=== PATIENT | female | born 1970 ===

== ENCOUNTER 2016-08-14 15:15 | Inpatient (IN) | payer BC ==
[~2016-08-14] VITALS: Ht 167.6 cm; Wt 76.6 kg
[2016-08-14 17:58] VITALS: BP 114/68; RESP 18
[2016-08-14 18:02] VITALS: Ht 167.6 cm; Wt 76.6 kg
[2016-08-14] MEDS ORDERED: ONDANSETRON 4 MG INJ IV PRN (19:00)
[2016-08-14] MEDS ORDERED: ACETAMINOPHEN 325 MG TAB PO PRN (19:00)
[2016-08-14] MEDS ORDERED: DOCUSATE SODIUM 100 MG CAP PO PRN (19:00)
[2016-08-14] MEDS ORDERED: NACL 0.9% 3 ML SYG IV SCH (19:00)
[2016-08-14] MEDS ORDERED: GLUCOSE GEL 15 GRAM TUBE BUCCAL PRN (19:30)
[2016-08-14] MEDS ORDERED: DEXTROSE 50% 50 ML SYRINGE IV PRN ×2 (19:30)
[2016-08-14] MEDS ORDERED: GLUCOSE GEL 15 GRAM TUBE PO PRN ×2 (19:30)
[2016-08-14] MEDS ORDERED: GLUCAGON 1 MG INJ IM PRN (19:30)
[2016-08-14 19:46] VITALS: BP 107/62; RESP 20
[2016-08-14] MEDS ORDERED: INSULIN GLARGINE [LANtus] 3 ML PEN SC SCH (20:00)
[2016-08-14] MEDS: SOD CHLORIDE 0.9% 1,000 ML IV SCH (20:29)
[2016-08-14 20:42] LABS: CHOL/HDL RATIO 9.8 RATIO; MAGNESIUM 1.8 mg/dl (1.7-2.5)
[2016-08-14] MEDS: ATORVASTATIN 80 MG TAB PO SCH (20:44)
[2016-08-14] MEDS: INSULIN ASPART [NOVOLOG] 3 ML PEN SC SCH (20:49)
[2016-08-14] MEDS: CEFAZOLIN 1 GM/50 ML (PMX) 50 ML IVPB SCH (22:14)
[2016-08-14] MEDS: HYDROCODONE/APAP (5/325) TAB PO PRN (22:19)
--- NOTE | 2016-08-14 22:53 | HP ---
DATE OF ADMISSION: 08/14/2016 TIME OF EVALUATION: 1844. REASON FOR ADMISSION: Left foot infection. Failed outpatient treatment. CONSULTANTS: Judith Gong, [facility], Podiatry. HISTORY OF PRESENT ILLNESS: This is a 46-year-old female with a past medical history of type 2 diabetes mellitus and dyslipidemia who had stepped on a toothpick on 08/09/2016 with a resultant injury to the left foot plantar surface proximal to the left big toe. The patient visited a local ER and the patient was discharged on p.o. Bactrim with minimal improvement. The patient initially visited [facility] on the day of injury. Today, the patient went to [facility] since she lives there locally because of the same problems. The patient was transferred to [facility] for further management because of insurance reasons. The patient denied any fevers or chills. The patient denied any obvious secretions or prolonged bleeding from the injury site. The patient verbalized that she has been resting with her foot elevated. However, this has not improved her symptoms. The patient tried [id number] pain medications with no improvement. The patient has been taking her Bactrim as prescribed until today. In the emergency room at [facility] the patient had a left foot x-ray done that did not show any obvious foreign body. The patient was given a tetanus injection at [facility]. The patient was transferred to [facility] because of insurance reasons. PAST MEDICAL HISTORY: Dyslipidemia, type 2 diabetes mellitus. PAST SURGICAL HISTORY: Hernia repair as a child. HOME MEDICATIONS: 1. Lantus insulin 15 units subcutaneously at bedtime. 2. Lipitor 80 mg p.o. at bedtime. 3. Metformin 1000 mg p.o. b.i.d. 4. Vitamin D3 400 units p.o. daily. 5. Enteric-coated aspirin 81 mg p.o. daily. ALLERGIES: NO KNOWN DRUG ALLERGIES. SOCIAL HISTORY: The patient lives at home. 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 Denies any use of tobacco, alcohol or illicit drugs. REVIEW OF SYSTEMS: A 12-point review of systems were made and the review of systems was negative other than what is mentioned in the history of present illness. PHYSICAL EXAMINATION: VITAL SIGNS: Temperature 98.1, pulse rate 81, respiratory rate 18, blood pressure 114/68, oxygen saturation 97% on room air. GENERAL: This is well-built, well-nourished female lying in bed in no apparent distress. HEENT: Head normocephalic and atraumatic. Eyes: Anicteric sclerae. Conjunctivae clear. EARS, NOSE, THROAT: Nasal septum is midline. Oral mucosa is moist. NECK: Supple. No JVD noticed. RESPIRATORY: Bilaterally clear to auscultation. No adventitious breath sounds. No use of accessory muscles of respiration. CARDIAC: Regular rhythm and rate. No murmurs. GASTROINTESTINAL: Abdomen soft, nontender and nondistended. Bowel sounds positive in all 4 quadrants. GENITOURINARY: Deferred. EXTREMITIES: No cyanosis, no clubbing. Peripheral pulses palpable. Left foot : Edema on the plantar aspect, proximal to the left first toe with tenderness to touch. NEUROLOGIC: The patient is awake, alert and oriented. Cranial nerves are grossly intact. LABORATORY AND DIAGNOSTIC DATA: From [facility]: WBC 5.6, hemoglobin 11.1, hematocrit 33.6, platelet count 362. Sodium 130, potassium 4.0, chloride 92, carbon dioxide 22, BUN 7, creatinine 0.7, GFR greater than 60. Glucose 355 , calcium 9.2, total bilirubin 0.2, AST 12, ALT 9, alkaline phosphatase 77, total protein 8.4, albumin 4.2. Left foot x-ray. No obvious foreign body. IMPRESSION: This is a 46-year-old female who had an injury to the left foot secondary to stepping on a toothpick on 08/09/2016 who had failed outpatient treatment and will be admitted here for further treatment and evaluation. ASSESSMENT AND PLAN: 1. Left foot diabetic foot infection secondary to injury, to rule out any foreign body. The patient will be started on IV antibiotics. A left foot MRI will be obtained to evaluate for any underlying osteomyelitis or any foreign body. A podiatry consult will be obtained. The patient will be provided with adequate pain control. 2. Type 2 diabetes mellitus, uncontrolled. The patient will be started on sliding scale insulin along with Lantus insulin. Hemoglobin A1c will be obtained to evaluate the blood glucose control over the past few weeks. 3. Dyslipidemia. The patient will be resumed on statins. A fasting lipid panel will be obtained. 4. Hyponatremia. Etiology unclear. The patient will be started on IV hydration with normal saline. Plan. The patient will be admitted to inpatient medical/surgical floor. The patient will be started on a carbohydrate controlled low cholesterol diet. The patient will be started on DVT prophylaxis and gastrointestinal prophylaxis. The patient will remain a FULL CODE. The rest of the patient's management will be based on the clinical course, the results of the diagnostics and inputs from consultants. Based on the patient's clinical presentation, she most probably requires at least 2 midnights' stay for further management and evaluation of her clinical presentation. The case and management of this patient was fully discussed with Dr. Reilly. Approximately 50 minutes was spent on the history and physical of this patient. LATANYA REILLY MD AM/NTS Conf#: [id number] DID#: [id number] CC: JUDITH GONG DPM; DOMINGO REILLY MD;*EndCC* MTDD
[2016-08-15] MEDS: ACCUCHECK XX SCH (02:46)
[2016-08-15] MEDS: CEFAZOLIN 1 GM/50 ML (PMX) 50 ML IVPB SCH ×2 (06:03→13:22)
[2016-08-15 06:16] LABS: BASOPHIL # 0.1 10^3/ul (0.0-0.1); BASOPHILS % 1.3 % (0.0-2.0); EOSINOPHILS # 0.2 10^3/ul (0.0-0.5); EOSINOPHILS % 3.3 % (0.0-7.0); HEMATOCRIT 30.7 % (37.0-47.0); HEMOGLOBIN 10.1 g/dl (12.0-16.0); LYMPHOCYTES # 1.6 10^3/ul (0.8-2.9); LYMPHOCYTES % 30.7 % (15.0-51.0); MEAN CORPUSCULAR HEMOGLOBIN 25.1 pg (29.0-33.0); MEAN CORPUSCULAR VOLUME 76.1 fl (82.0-101.0); MEAN PLATELET VOLUME 9.5 fl (7.4-10.4); MONOCYTE # 0.5 10^3/ul (0.3-0.9); NEUTROPHIL # 2.8 10^3/ul (1.6-7.5); NEUTROPHILS % 54.7 % (39.0-77.0); PLATELET COUNT 294 10^3/UL (140-440); RED BLOOD COUNT 4.03 10^6/ul (4.20-5.40); UNCORRECTED WBC 5.1 10^3/ul (4.8-10.8); WHITE BLOOD COUNT 5.1 10^3/ul (4.8-10.8)
[2016-08-15 06:34] LABS: CONDITION 1; LH ANALYZER COMMENTS 1
[2016-08-15 06:39] LABS: MAGNESIUM 1.7 mg/dl (1.7-2.5)
[2016-08-15 06:54] LABS: POTASSIUM 4.4 mmol/L (3.5-5.1)
[2016-08-15 06:56] LABS: CREATININE 0.68 mg/dl (0.44-1.00)
[2016-08-15 06:57] LABS: CALCIUM 8.8 mg/dl (8.4-10.2)
[2016-08-15 07:22] VITALS: BP 134/80; RESP 18
[2016-08-15 08:18] VITALS: BP 100/57; RESP 18
[2016-08-15] MEDS: SOD CHLORIDE 0.9% 1,000 ML IV SCH ×2 (08:20→10:54)
[2016-08-15] MEDS: ASPIRIN (EC) 81 MG TAB PO SCH (08:22)
[2016-08-15] MEDS: ENOXAPARIN 40 MG/0.4 ML SYG SC SCH (08:26)
[2016-08-15] MEDS: INSULIN ASPART [NOVOLOG] 3 ML PEN SC SCH ×6 (08:27→20:33)
--- NOTE | 2016-08-15 10:25 | PN ---
Date/Time of Note Date/Time of Note DATE: 08/15/16 TIME: 10:25 Assessment/Plan VTE Prophylaxis VTE Prophylaxis Intervention: LMWH Lines/Catheters [facility] Peripheral IV Urinary Cath still in place: No Assessment/Plan Chief Complaint/Hosp Course 1. Left foot cellulitis secondary to injury, to rule out any foreign body. Continue antibiotics. Pending left foot MRI. A podiatry consult pending. Continue adequate pain control. 2. Type 2 diabetes mellitus, uncontrolled. Continue sliding scale insulin along with basal insulin and pre-meal insulin. Will adjust insulin to obtain optimal blood sugar control. Hemoglobin A1c out of range and was sent out for confirmation. 3. Dyslipidemia. Continue statins. We will reinforce a low-cholesterol diet. 4. Hyponatremia. Improving. Continue normal saline IV. 5. Microcytic, hypochromic anemia. Will obtain an iron panel. Will monitor the H&H closely. 6. Fluids, electrolytes, and nutrition. Carbohydrate controlled, low- cholesterol diet. 7. DVT prophylaxis. Subcutaneous Lovenox. 8. Gastrointestinal prophylaxis. Histamine 2 receptor blockers. 9. Plan. Continue pain control. Continue antibiotics. Await podiatry evaluation. Await foot MRI. Call ID for antibiotic management. Case discussed with . Problems: Subjective 24 Hr Interval Summary Free Text/Dictation Blood sugars running high. Left foot pain well controlled. Exam/Review of Systems Vital Signs Vitals Vital Signs Date Time Temp Pulse Resp B/P Pulse Ox O2 Delivery O2 Flow Rate FiO2 08/15/16 08:18 98.0 79 18 100/57 99 Intake and Output 08/14/16 08/14/16 08/15/16 15:00 23:00 07:00 Intake Total 1440 ml Output Total 600 ml Balance 840 ml Exam GENERAL: This is well-built, well-nourished female lying in bed in no apparent distress. HEENT: Head normocephalic and atraumatic. Eyes: Anicteric sclerae. Conjunctivae clear. EARS, NOSE, THROAT: Nasal septum is midline. Oral mucosa is moist. NECK: Supple. No JVD noticed. RESPIRATORY: Bilaterally clear to auscultation. No adventitious breath sounds. No use of accessory muscles of respiration. CARDIAC: Regular rhythm and rate. No murmurs. GASTROINTESTINAL: Abdomen soft, nontender and nondistended. Bowel sounds positive in all 4 quadrants. GENITOURINARY: Deferred. EXTREMITIES: No cyanosis, no clubbing. Peripheral pulses palpable. Left foot : Edema on the plantar aspect proximal to the left first toe with tenderness to touch. NEUROLOGIC: The patient is awake, alert and oriented. Cranial nerves are grossly intact. Results Result Diagram: 08/15/16 0520 08/15/16 0500 Results 24 hrs Laboratory Tests Test 08/14/16 19:40 08/14/16 20:42 08/14/16 23:15 08/15/16 02:12 Cholesterol Level 306 H Cholesterol/HDL Ratio 9.8 HDL Cholesterol 31 L Hemoglobin A1c LDL Cholesterol, Calculated 241 Magnesium Level 1.8 Triglycerides Level 168 H Bedside Glucose 284 H 265 H Urine Test NEGATIVE Test 08/15/16 05:00 08/15/16 05:20 08/15/16 07:56 Anion Gap 14 Blood Urea Nitrogen 9 Calcium Level 8.8 Carbon Dioxide Level 22 Chloride Level 102 Creatinine 0.68 Glucose Level 262 H Magnesium Level 1.7 Phosphorus Level 4.0 Potassium Level 4.4 Sodium Level 134 L Basophils # 0.1 Basophils % 1.3 Blood Morphology Comment Eosinophils # 0.2 Eosinophils % 3.3 Hematocrit 30.7 L Hemoglobin 10.1 L Lymphocytes # 1.6 Lymphocytes % 30.7 Mean Corpuscular Hemoglobin 25.1 L Mean Corpuscular Hemoglobin Concent 33.0 Mean Corpuscular Volume 76.1 L Mean Platelet Volume 9.5 Monocytes # 0.5 Monocytes % 10.0 Neutrophils # 2.8 Neutrophils % 54.7 Nucleated Red Blood Cells # 0.0 Nucleated Red Blood Cells % 0.0 Platelet Count 294 Red Blood Count 4.03 L Red Cell Distribution Width 17.0 H White Blood Count 5.1 Bedside Glucose 232 H Medications Medications Current Medications Ondansetron HCl (Zofran Inj) 4 mg Q6H PRN IV NAUSEA AND/OR VOMITING; Start 05/20 at 19:00 Acetaminophen (Tylenol Tab) 650 mg Q6H PRN PO PAIN LEVEL 1-3 OR FEVER; Start at 19:00 Acetaminophen/ Hydrocodone Bitart (Rubicon (5/325)) 1 tab Q6H PRN PO MODERATE PAIN LEVEL 4-6 Last administered on 08/14/16t 22:19; Admin Dose 1 TAB; Start 05/20 at 19:00 Morphine Sulfate (morphine) 2 mg Q4H PRN IV SEVERE PAIN LEVEL 7-10; Start 08/14 at 19:00 Docusate Sodium (Colace) 100 mg Q12H PRN PO CONSTIPATION; Start 08/14/16 at 19: 00 Enoxaparin Sodium 40 mg 40 mg DAILY SC Last administered on 08/15/16 08:26; Admin Dose 40 MG; Start 08/15/16 at 09:00 Cefazolin Sodium (Ancef 1 Gm/50 ml (Pmx)) 50 ml @ 100 mls/hr Q8 IVPB Last administered on 08/15/16 06:03; Admin Dose 100 MLS/HR; Start 08/14/16 at 22:00 Diagnostic Test (Pha) (Accucheck) 1 ea 02 XX Last administered on 08/15/16 02: 46; Admin Dose 1 EA; Start 08/15/16 at 02:00 Atorvastatin Calcium (Lipitor) 80 mg HS PO Last administered on 08/14/16 20:44 ; Admin Dose 80 MG; Start 08/14/16 at 21:00 Insulin Glargine (Lantus) 15 unit DAILY@20 SC Last administered on 08/14/16 21 :01; Admin Dose 15 UNIT; Start 08/14/16 at 20:00 Aspirin (Halfprin) 81 mg DAILY PO Last administered on 08/15/16 08:22; Admin Dose 81 MG; Start 08/15/16 at 09:00 Miscellaneous Information 1 ea NOTE XX ; Start 08/14/16 at 19:30 Glucose (Glutose) 15 gm Q15M PRN PO DECREASED GLUCOSE; Start 08/14/16 at 19:30 Glucose (Glutose) 22.5 gm Q15M PRN PO DECREASED GLUCOSE; Start 08/14/16 at 19: 30 Dextrose (D50w Syringe) 25 ml Q15M PRN IV DECREASED GLUCOSE; Start 08/14/16 at 19:30 Dextrose (D50w Syringe) 50 ml Q15M PRN IV DECREASED GLUCOSE; Start 08/14/16 at 19:30 Glucagon (Glucagen) 1 mg Q15M PRN IM DECREASED GLUCOSE; Start 08/14/16 at 19:30 Glucose 15 gm 15 gm Q15M PRN BUCCAL DECREASED GLUCOSE; Start 08/14/16 at 19:30 Sodium Chloride (NS) 1,000 ml @ 75 mls/hr [id number] IV Last administered on 08/14t 20:29; Admin Dose 75 MLS/HR; Start 08/14/16 at 19:00 LATANYA MEDEIROS NP Aug 15, 2016 10:25
[2016-08-15] MEDS: LEVOFLOXACIN 500MG/D5W (PMX) 100 ML IVPB SCH (10:55)
[2016-08-15] MEDS: HYDROCODONE/APAP (5/325) TAB PO PRN ×2 (11:09→23:14)
[2016-08-15 11:43] LABS: IRON 38 ug/dl (35-150)
[2016-08-15 11:53] LABS: TOTAL IRON BINDING CAPACITY 307 ug/dl (241-421)
[2016-08-15] MEDS ORDERED: INSULIN ASPART [NOVOLOG] 3 ML PEN SC SCH (12:15)
[2016-08-15] MEDS: LINAGLIPTIN 5 MG TABLET PO SCH (12:24)
[2016-08-15] MEDS ORDERED: INSULIN ASPART [NOVOLOG] 3 ML PEN SC ONE (12:30)
[2016-08-15] MEDS ORDERED: VANCOMYCIN IV PER PHARMACY XX SCH (14:30)
[2016-08-15] MEDS ORDERED: VANCOMYCIN 1.5 GM in SOD CHLORIDE 0.9% 250 ML IVPB ONE (16:00)
--- NOTE | 2016-08-15 16:17 | RADRPT ---
PROCEDURE: MRI OF THE LEFT FOOT. CLINICAL INDICATION: Evaluate osteomyelitis of the big toe. TECHNIQUE: Multiple MRI images of the left foot were obtained in multiple planes utilizing multipl e pulse sequences. Images were interpreted on the high-resolution PACS system. COMPARISON: None. FINDINGS: 1st ray: There is no acute fracture or bone marrow edema. There is diffuse soft tissue edema and so ft tissue stranding around the first metatarsophalangeal joint extending to the level of the first i nterphalangeal joint. There is no discrete skin defect or a sinus tract from the skin to the bone. There is no evidence of osteomyelitis within the first digit. There is no discrete fluid collection to suggest a drainable abscess. There is mild partial-thickness chondral loss and osseous spurring within the first metatarsophalang eal joint. Collateral ligaments are intact. There is no significant joint effusion. Alignment is maintained. The first interphalangeal joint is intact. 2nd through 5th ray: There is no acute fracture or bone marrow edema. The chondral surfaces are pre served at the metatarsophalangeal joints. The collateral ligaments are intact. The plantar plates are intact with slight dorsal subluxation of the proximal phalanges relative to the metatarsals. Th ere is no significant joint effusion. MIDFOOT: The tarsometatarsal joints are intact. The Lisfranc's ligament is intact. Other findings: There is no discrete Lorenzo's neuroma. There is no plantar fibroma. The flexor and extensor tendons around the foot are intact. A small amount of fluid is noted surrou nding the flexor hallucis longus tendon at the level of the mid to distal first metatarsal. Muscles around the foot are unremarkable. RPTAT: ZZ IMPRESSION: 1. Edema within the subcutaneous soft tissues around the first digit extending from the level of th e first metatarsophalangeal joint to the level of the first interphalangeal joint which can be seen with cellulitis or contusion. No evidence of osteomyelitis or a discrete drainable abscess. 2. 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 3. Mild tenosynovitis of the flexor hallucis longus tendon at the level of the mid to distal first metatarsal. .Imelda Breen MD, MD Date Time Electronically viewed and signed by .Imelda Breen MD, on 08/15/2016 16:17 .T/
[2016-08-15] MEDS: metFORMIN 500 MG TAB PO SCH (17:18)
[2016-08-15] MEDS: POVIDONE IODINE 10% 28.4 GM OINT TOP SCH (18:28)
--- NOTE | 2016-08-15 18:33 | CONS ---
DATE OF ADMISSION: 08/14/2016 DATE OF CONSULTATION: 08/15/2016 TYPE OF CONSULTATION: Infectious disease. REASON FOR CONSULTATION: Antibiotic management. HISTORY OF PRESENT ILLNESS: Alex Pierson is a 46-year-old female who comes in with left foot inj ury and is being seen for antibiotic management. The patient is a 46-year-old female who is being f ollowed by Dr. Jose Miguel Gong, podiatry. Her past problems include: 1. Adult-onset diabetes mellitus. 2. Dyslipidemia. The patient stepped on a toothpick on 08/09/2016 with resultant injury to the left foot proximal to the left big toe. She visited a local ER. She was placed on Bactrim with minimal improvement. She went in to [facility] and was transferred here to [facility]. She has been on Bactrim sin ce it was prescribed. X-ray at [facility] did not show any obvious foreign bodies. She was given a tetanus shot. PAST MEDICAL HISTORY: As outlined. PAST SURGICAL HISTORY: Hernia repair as a child. 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 Habits: She does not smoke, drink, or abuse drugs. ALLERGIES: NONE TO PENICILLIN, SULFA, OR FOODS. MEDICATIONS: Per chart. REVIEW OF SYSTEMS: As per HPI. PHYSICAL EXAMINATION: GENERAL: The patient is a well-developed, well-nourished black female who is alert, responsive, in no acute distress. VITAL SIGNS: Stable. She is afebrile. SKIN: Without generalized rash. HEENT: Within normal limits. NECK: Supple. LYMPH NODES: None palpable. CHEST: Decreased breath sounds at the bases. HEART: Without murmur or gallop. ABDOMEN: Soft, nontender without organosplenomegaly or masses. EXTREMITIES: Without cyanosis, clubbing, or edema. Left foot has some edema on the plantar aspect proximal to the left first toe with tenderness to touch. RECTAL AND GENITAL: Deferred. NEUROLOGIC: No focal neurological abnormalities. LABORATORY DATA: From [facility] shows a white count of 5.6, H and H 11.1 and 33.6, platelet count 362,000. BUN and creatinine 7/0.7. Left foot x-ray: No obvious foreign body. A left foot MRI was ordered. Today her white count is 5.1. BUN and creatinine are 9/0.68. PLAN: The patient was begun on cefazolin and Levaquin. We are going to change the cefazolin to van comycin. She has no known allergies. I will dictate my findings to the hospitalist. Dictated By: MK MULTANI MD, JD/MARCY Conf#: [id number] DID#: [id number] CC: DOMINGO TONG MD;*End*
--- NOTE | 2016-08-15 19:32 | CONS ---
DATE OF ADMISSION: 08/14/2016 DATE OF CONSULTATION: 08/15/2016 CHIEF COMPLAINT: Left foot pain. HISTORY OF PRESENT ILLNESS: This is a 46-year-old female who was seen at multiple facilities and no relief in symptoms. The patient stepped onto a toothpick and had failed oral antibiotics. She had been on Bactrim. The patient with a history of diabetes type x2. PAST MEDICAL HISTORY: Dyslipidemia, type 2 diabetes. PAST SURGICAL HISTORY: Hernia repair. MEDICATIONS: 1. Lantus 50 units subcu at bedtime. 2. Lipitor 80 mg p.o. at bedtime. 3. Metformin 1000 mg p.o. b.i.d. 4. Vitamin D 400 units p.o. daily. 5. Aspirin 81 mg daily. ALLERGIES: NO KNOWN DRUG ALLERGIES. SOCIAL HISTORY: Lives at home. 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 REVIEW OF SYSTEMS: Mild pain, left foot, decreasing since yesterday. PHYSICAL EXAMINATION: VITAL SIGNS: Temperature is 98, pulse is 79, respiratory rate 18, blood pressure 100/57, pulse oxim etry is 99 on room air. GENERAL: The patient alert, oriented, in no acute distress. HEAD: Normocephalic, atraumatic. Trachea is midline. PULMONARY: Regular respiration. EXTREMITIES: The patient has dry skin, bilateral. Left foot with mild edema. Medial to the first metatarsophalangeal joint has a healed puncture site, mild tenderness. The patient states that it i s sensitive, but decreased from yesterday. No cellulitis, no lymphangitis. No pain with passive ra nge of motion of the great toe. The patient has a 2+ DP, PT pulse. LABORATORIES: WBC 5.1, hemoglobin 10.1, hematocrit 30.7, platelets 294. MRI: 1. Edema. 2. No evidence of osteomyelitis or discrete drainable abscess. 3. Mild synovitis of the FHL tendon. X-rays: No foreign body. ASSESSMENT: 1. Left foot puncture wound with a toothpick. 2. Cellulitis without abscess. 3. Diabetes type 2. 4. Pain. PLAN: The patient seen and evaluated. Has improved clinical appearance since being on vancomycin a nd Levaquin. Reviewed MRI. No evidence of abscess formation, no foreign body. Recommend melisain james. Discussed with patient if no improvement, may require incision and drainage in the operating faye m setting with pulse lavage. The patient states pain is decreasing. Nursing recommendations are gi maria d. Thank you for this consultation. Will continue to follow while in-house. Dictated By: JUDITH NIEVES/MARCY Conf#: [id number] DID#: [id number] CC: DOMINGO TONG MD;*EndCC*
[2016-08-15] MEDS ORDERED: INSULIN GLARGINE [LANtus] 3 ML PEN SC SCH (20:00)
[2016-08-15 20:33] VITALS: BP 113/67; RESP 18
[2016-08-15] MEDS: ATORVASTATIN 80 MG TAB PO SCH (20:33)
[2016-08-15] MEDS: FAMOTIDINE 20 MG TAB PO SCH (20:33)
[2016-08-16] MEDS: ACCUCHECK XX SCH (02:00)
[2016-08-16] MEDS: VANCOMYCIN 1 GM in NS 250 ML IVPB SCH ×2 (03:44→16:09)
[2016-08-16] MEDS: SOD CHLORIDE 0.9% 1,000 ML IV SCH ×3 (03:45→23:00)
[2016-08-16 05:50] LABS: BASOPHIL # 0.1 10^3/ul (0.0-0.1); BASOPHILS % 1.2 % (0.0-2.0); EOSINOPHILS # 0.2 10^3/ul (0.0-0.5); EOSINOPHILS % 3.6 % (0.0-7.0); HEMATOCRIT 29.5 % (37.0-47.0); HEMOGLOBIN 9.8 g/dl (12.0-16.0); LYMPHOCYTES # 1.8 10^3/ul (0.8-2.9); LYMPHOCYTES % 36.3 % (15.0-51.0); MEAN CORPUSCULAR HEMOGLOBIN 25.2 pg (29.0-33.0); MEAN CORPUSCULAR HGB CONC 33.1 g/dl (32.0-37.0); MEAN CORPUSCULAR VOLUME 76.3 fl (82.0-101.0); MEAN PLATELET VOLUME 9.2 fl (7.4-10.4); MONOCYTE # 0.4 10^3/ul (0.3-0.9); MONOCYTES % 8.7 % (0.0-11.0); NEUTROPHIL # 2.5 10^3/ul (1.6-7.5); NEUTROPHILS % 50.2 % (39.0-77.0); PLATELET COUNT 287 10^3/UL (140-440); RED BLOOD COUNT 3.87 10^6/ul (4.20-5.40); RED CELL DISTRIBUTION WIDTH 16.7 % (11.5-14.5); UNCORRECTED WBC 5.1 10^3/ul (4.8-10.8); WHITE BLOOD COUNT 5.1 10^3/ul (4.8-10.8)
[2016-08-16 06:01] LABS: POTASSIUM 4.2 mmol/L (3.5-5.1)
[2016-08-16 06:03] LABS: CREATININE 0.6 mg/dl (0.44-1.00)
[2016-08-16 06:04] LABS: CALCIUM 8.9 mg/dl (8.4-10.2)
[2016-08-16 06:14] LABS: CONDITION 1; LH ANALYZER COMMENTS 1
[2016-08-16 06:33] LABS: PHOSPHORUS 3.8 mg/dl (2.5-4.9)
[2016-08-16 06:34] LABS: MAGNESIUM 1.6 mg/dl (1.7-2.5)
[2016-08-16 07:40] VITALS: BP 115/63; RESP 18
[2016-08-16] MEDS: CHOLECALCIFEROL 1,000 UNIT TAB PO SCH (08:13)
[2016-08-16] MEDS: FAMOTIDINE 20 MG TAB PO SCH ×2 (08:13→20:40)
[2016-08-16] MEDS: LINAGLIPTIN 5 MG TABLET PO SCH (08:13)
[2016-08-16] MEDS: metFORMIN 500 MG TAB PO SCH ×2 (08:13→17:38)
[2016-08-16] MEDS: ASPIRIN (EC) 81 MG TAB PO SCH (08:13)
[2016-08-16] MEDS: ENOXAPARIN 40 MG/0.4 ML SYG SC SCH (08:15)
[2016-08-16] MEDS: INSULIN ASPART [NOVOLOG] 3 ML PEN SC SCH ×8 (08:33→20:39)
[2016-08-16] MEDS: POVIDONE IODINE 10% 28.4 GM OINT TOP SCH ×3 (09:00→20:42)
[2016-08-16] MEDS: LEVOFLOXACIN 500MG/D5W (PMX) 100 ML IVPB SCH (11:28)
--- NOTE | 2016-08-16 11:30 | CONS ---
DATE OF ADMISSION: 08/14/2016 DATE OF CONSULTATION: 08/16/2016 SUBJECTIVE FINDINGS: The patient is being followed for a left foot cellulitis, status post puncture . The patient is currently on vancomycin and Levaquin and had failed outpatient treatment. The kayla ent relates decreasing pain since hospitalization. Denies any fever, nausea, vomiting, chills. The patient has questions about diabetes and peripheral neuropathy. PHYSICAL EXAMINATION: VITAL SIGNS: Temperature 98.3, pulse 79, respiratory rate 18, blood pressure 115/63, pulse oximetry is 99%. OBJECTIVE FINDINGS Mild edema of the left first metatarsophalangeal joint. Puncture site appears h ealed. Decreased pain to dorsal plantar aspect. There is mild sensitivity to the medial first MPJ. There are 2+ DP and PT pulses. LABORATORIES: WBC 5.1, hemoglobin 9.8, hematocrit 29.5, platelets 287. Foot MRI without evidence of a foreign body, mild tenosynovitis of the FHL tendon. ASSESSMENT: 1. Left foot cellulitis. 2. Left foot puncture wound with a toothpick 3. Diabetes type 2. 4. Pain. PLAN: The patient is improving with vancomycin and Levaquin. Discussed diabetes management and per ipheral neuropathy. The patient to follow up with primary care at time of discharge. If continued improvement, we will recommend discharge planning. Dictated By: JUDITH NIEVES/MARCY Conf#: [id number] DID#: [id number]
[2016-08-16] MEDS ORDERED: ATOR80TA75 PO (12:53)
[2016-08-16] MEDS ORDERED: CHOL100062 PO (12:53)
[2016-08-16] MEDS ORDERED: HYDR-3498 PO (12:53)
[2016-08-16] MEDS ORDERED: MAGNESIUM OXIDE 400 MG TAB PO ONE (13:00)
[2016-08-16] MEDS ORDERED: BACTDS PO (13:06)
[2016-08-16] MEDS ORDERED: METF500T PO (13:06)
--- NOTE | 2016-08-16 13:45 | PN ---
DATE: 08/16/2016 SUBJECTIVE: The patient is alert, feels better, looks comfortable, no fevers. Vital signs stable. WBC 5.1, no shift, no bands. BUN 9, creatinine 0.60. ANTIMICROBIALS: 1. Vancomycin. 2. Levaquin. PHYSICAL EXAMINATION: GENERAL: Well-nourished, well-developed, middle-aged -[place] woman who is alert, in no dis tress. HEENT: Head atraumatic, normocephalic. Sclerae anicteric. Buccal mucosa pink. NECK: Supple, trachea midline. CHEST: Rise symmetrical. Breath sounds clear. HEART: S1, S2. ABDOMEN: Soft, bowel tones present. EXTREMITIES: Left foot, resolving erythema and edema. ASSESSMENT: 1. Left foot, resolving cellulitis with a puncture wound. 2. Diabetes. PLAN: The patient remains stable, overall improving. Anticipate discharge on oral Bactrim for 5 to 7 more days. Dictated By: ARSALAN NEGRO RUBBER TIRE CURER carlos LEE/MARCY Conf#: [id number] DID#: [id number]
--- NOTE | 2016-08-16 15:30 | PN ---
Date/Time of Note Date/Time of Note DATE: 08/16/16 TIME: 15:27 Assessment/Plan VTE Prophylaxis VTE Prophylaxis Intervention: LMWH Lines/Catheters IV Catheter Type (from Nrs): Peripheral IV Urinary Cath still in place: No Assessment/Plan Chief Complaint/Hosp Course Assessment and plan 1. Left foot cellulitis secondary to injury. MRI of the left foot showed no evidence of osteomyelitis. Podiatry following. Continue on antibiotics per ID recommendations. Analgesics as needed. 2. Type 2 diabetes. Scrap Drop Engineer following. Still noted with elevated blood glucose. Continue insulin regimen per endocrinology. Await A1c result 3. Dyslipidemia. Continue on statin medication 4. Hypernatremia. Improved with IV hydration 5. Hypomagnesemia. Will replete and check level in a.m. Disposition and plan: Continue antibiotics. Still with noted elevated blood glucose. Follow-up with staff developer recommendations. We'll get visual educator to follow. Discussed plan of care with Dr. Scales Problems: Subjective 24 Hr Interval Summary Free Text/Dictation Comfortable at present. No pain distress. Exam/Review of Systems Vital Signs Vitals Vital Signs Date Time Temp Pulse Resp B/P Pulse Ox O2 Delivery O2 Flow Rate FiO2 08/16/16 07:40 98.3 79 18 115/63 99 Intake and Output 08/15/16 08/15/16 08/16/16 14:59 22:59 06:59 Intake Total 300 ml 1720 ml 1435 ml Balance 300 ml 1720 ml 1435 ml Exam General: No acute signs or symptoms of distress Eyes: pupils equal round, Anicteric sclera Neck: Supple nontender, no JVD Cardiac: S1, S2 auscultated, regular rhythm and rate Pulmonary: No coarse rhonchi or breathing auscultated GI: Abdomen soft nontender nondistended, bowel sounds active Extremities: Noted with some swelling on left lower extremity. Skin: Clean dry and intact Neurologic: Alert to person place and time and situation Results Result Diagram: 08/16/16 0507 08/16/16 0507 Results 24 hrs Laboratory Tests Test 08/15/16 17:17 08/15/16 20:32 08/16/16 05:07 08/16/16 07:53 Bedside Glucose 254 H 180 284 H Anion Gap 12 Basophils # 0.1 Basophils % 1.2 Blood Morphology Comment Blood Urea Nitrogen 9 Calcium Level 8.9 Carbon Dioxide Level 23 Chloride Level 105 Creatinine 0.60 Eosinophils # 0.2 Eosinophils % 3.6 Glucose Level 256 H Hematocrit 29.5 L Hemoglobin 9.8 L Lymphocytes # 1.8 Lymphocytes % 36.3 Magnesium Level 1.6 L Mean Corpuscular Hemoglobin 25.2 L Mean Corpuscular Hemoglobin Concent 33.1 Mean Corpuscular Volume 76.3 L Mean Platelet Volume 9.2 Monocytes # 0.4 Monocytes % 8.7 Neutrophils # 2.5 Neutrophils % 50.2 Nucleated Red Blood Cells # 0.0 Nucleated Red Blood Cells % 0.0 Phosphorus Level 3.8 Platelet Count 287 Potassium Level 4.2 Red Blood Count 3.87 L Red Cell Distribution Width 16.7 H Sodium Level 136 White Blood Count 5.1 Test 08/16/16 11:26 Bedside Glucose 292 H Medications Medications Current Medications Ondansetron HCl (Zofran Inj) 4 mg Q6H PRN IV NAUSEA AND/OR VOMITING; Start 05/20 at 19:00 Acetaminophen (Tylenol Tab) 650 mg Q6H PRN PO PAIN LEVEL 1-3 OR FEVER; Start at 19:00 Acetaminophen/ Hydrocodone Bitart ([place] (5/325)) 1 tab Q6H PRN PO MODERATE PAIN LEVEL 4-6 Last administered on 08/15/16 23:14; Admin Dose 1 TAB; Start 05/20 at 19:00 Morphine Sulfate (morphine) 2 mg Q4H PRN IV SEVERE PAIN LEVEL 7-10; Start 08/14 at 19:00 Docusate Sodium (Colace) 100 mg Q12H PRN PO CONSTIPATION; Start 08/14/16 at 19: 00 Enoxaparin Sodium (Lovenox) 40 mg DAILY SC Last administered on 08/16/16 08:15 ; Admin Dose 40 MG; Start 08/15/16 at 09:00 Diagnostic Test (Pha) (Accucheck) 1 ea 02 XX Last administered on 08/15/16 02: 46; Admin Dose 1 EA; Start 08/15/16 at 02:00 Atorvastatin Calcium (Lipitor) 80 mg HS PO Last administered on 08/15/16 20:33 ; Admin Dose 80 MG; Start 08/14/16 at 21:00 Aspirin (Halfprin) 81 mg DAILY PO Last administered on 08/16/16 08:13; Admin Dose 81 MG; Start 08/15/16 at 09:00 Miscellaneous Information 1 ea NOTE XX ; Start 08/14/16 at 19:30 Glucose (Glutose) 15 gm Q15M PRN PO DECREASED GLUCOSE; Start 08/14/16 at 19:30 Glucose (Glutose) 22.5 gm Q15M PRN PO DECREASED GLUCOSE; Start 08/14/16 at 19: 30 Dextrose (D50w Syringe) 25 ml Q15M PRN IV DECREASED GLUCOSE; Start 08/14/16 at 19:30 Dextrose (D50w Syringe) 50 ml Q15M PRN IV DECREASED GLUCOSE; Start 08/14/16 at 19:30 Glucagon (Glucagen) 1 mg Q15M PRN IM DECREASED GLUCOSE; Start 08/14/16 at 19:30 Glucose 15 gm 15 gm Q15M PRN BUCCAL DECREASED GLUCOSE; Start 08/14/16 at 19:30 Sodium Chloride (NS) 1,000 ml @ 75 mls/hr [id number] IV Last administered on 08/16 03:45; Admin Dose 75 MLS/HR; Start 08/14/16 at 19:00 Famotidine 20 mg 20 mg BID PO Last administered on 08/16/16 08:13; Admin Dose 20 MG; Start 08/15/16 at 21:00 Levofloxacin/ Dextrose (Levaquin 500mg/ D5W 100 ml (Pmx)) 100 ml @ 100 mls/hr Q24H IVPB Last administered on 08/16/16 11:28; Admin Dose 100 MLS/HR; Start at 11:00 Linagliptin (Tradjenta) 5 mg DAILY PO Last administered on 08/16/16 08:13; Admin Dose 5 MG; Start 08/15/16 at 12:30 Cholecalciferol 1000 unit 1,000 unit DAILY PO Last administered on 08/16/16 08 :13; Admin Dose 1,000 UNIT; Start 08/16/16 at 09:00 Vancomycin HCl (Vancocin) 250 ml @ 125 mls/hr Q12H IVPB Last administered on 03:44; Admin Dose 125 MLS/HR; Start 08/16/16 at 04:00 Povidone Iodine (Povidone-Iodine) 1 applic BID TOP Last administered on t 18:28; Admin Dose 1 APPLIC; Start 08/15/16 at 18:30 Miscellaneous Information (*Rx Drug Level Order Reminder*) VANCOMYCIN TROUGH AT 0300 ONCE ONCE XX ; Start 08/17/16 at 03:00; Stop 08/17/16 at 03:01 Insulin Glargine (Lantus) 28 unit DAILY@20 SC ; Start 08/16/16 at 20:00 CHRISTIANO WAGGONER Aug 16, 2016 15:29
--- NOTE | 2016-08-16 18:13 | CONS ---
Date/Time of Note Date/Time of Note DATE: 08/16/16 TIME: 18:04 Assessment/Plan Assessment/Plan Problems: (1) Type 2 diabetes mellitus with hyperglycemia Status: Chronic Comment: Pt. will need MDI and non-insulin therapy. Cont. metformin 1g bid and add linagliptin 5 mg/d. Titrate Lantus and Novolog up at 60% bolus/40% basal ratio until goal BG between 100-180 mg/dL achieved. Pt. obviously VERY insulin resistant. Yesterday placed pt. on Lantus 20 qhs and Novolog 10 qac and has had no effect. Will increase to Novolog 14 qac and Lantus 28 qhs tonight. Imperative to achieve glycemic control before d/c because pt. already w/ foot infection complication. Qualifiers: Qualified Code: E11.65 - Type 2 diabetes mellitus with hyperglycemia, with long-term current use of insulin Consultation Date/Type/Reason Admit Date/Time Aug 14, 2016 at 17:41 Date of Consultation: Aug 16, 2016 Type of Consultation: Endocrinology Reason for Consultation T2DM out of control (OOC) Referring Provider: LATANYA MEDEIROS SWIMMING PROFESSOR Hx of Present Illness 46 y/o AA F w/ h/o multiple episodes of GDM eventually resulting in T2DM and hyperlipidemia in [facility] until 1 week ago when she stepped on a toothpick and had a mild puncture injury to her L medial great toe. Next am awoke w/ redness, swelling, pain. Went to ER and got antibiotics. Took as outpt. but these were ineffective. Returned 2 days ago and was admitted for IV antibiotics. A1c too high to calculate. Endo consulted. Constitutional: improved, no complaints Eyes: no complaints ENT: no complaints Respiratory: no complaints Cardiovascular: no complaints Gastrointestinal: no complaints Genitourinary: no complaints Musculoskeletal: no complaints Neurologic: no complaints Psychological: nl mood/affect, no complaints Past Medical History Medical History: diabetes, high cholesterol Past Surgical History Past Surgical Hx: other (, hernia repair) Family History Significant Family History: cancer (breast cancer), diabetes (type 2) Social History b. 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 [employer] Alcohol Use: none Smoking Status: Never smoker Drug Use: none Exam/Review of Systems Vital Signs Vitals VS - Last 72 Hours, by Label Date Time Temp Pulse Resp B/P Pulse Ox O2 Delivery O2 Flow Rate FiO2 08/16/16 07:40 98.3 79 18 115/63 99 08/15/16 20:33 98.4 84 18 113/67 99 08/15/16 08:18 98.0 79 18 100/57 99 08/15/16 07:22 98.0 76 18 134/80 96 08/14/16 19:46 98.1 86 20 107/62 100 08/14/16 17:58 98.1 81 18 114/68 97 Vital Signs Date Time Temp Pulse Resp B/P Pulse Ox O2 Delivery O2 Flow Rate FiO2 08/16/16 07:40 98.3 79 18 115/63 99 Intake and Output 08/15/16 08/15/16 08/16/16 15:00 23:00 07:00 Intake Total 300 ml 1720 ml 1435 ml Balance 300 ml 1720 ml 1435 ml Exam Constitutional: alert, obese, oriented Psych: nl mood/affect, no complaints Eyes: EOMI, PERRL, nl conjunctiva, nl lids, nl sclera ENMT: mucosa pink and moist, nl external ears & nose Neck: non-tender, supple, No bruits, No masses Respiratory: clear to auscultation, normal air movement Cardiovascular: nl pulses, regular rate and rhythm, No edema, No murmurs/extra sounds, No rub Gastrointestinal: bowel sounds, nl liver, spleen, non-tender, soft, No mass, No rebound or guarding Musculoskeletal: nl extremities to inspection (cellulitis resolved) Extremities: No clubbing, No cyanosis, No edema Neurological: HELPER COORDINATOR II-XII intact, nl mental status, nl speech, nl strength Additional Comments Bedside Glucose - 72 Hours Test 08/14/16 20:42 08/15/16 02:12 08/15/16 07:56 08/15/16 11:47 Bedside Glucose 284mg/dL (70-220) H 265mg/dL (70-220) H 232mg/dL (70-220) H 391mg/dL (70-220) H Test 08/15/16 13:27 08/15/16 15:20 08/15/16 17:17 08/15/16 20:32 Bedside Glucose 131mg/dL (70-220) 108mg/dL (70-220) 254mg/dL (70-220) H 180mg/dL (70-220) Test 08/16/16 07:53 08/16/16 11:26 08/16/16 17:13 Bedside Glucose 284mg/dL (70-220) H 292mg/dL (70-220) H 239mg/dL (70-220) H Results Result Diagram: 08/16/16 0507 08/16/16 0507 Results 24 hrs Laboratory Tests Test 08/15/16 20:32 08/16/16 05:07 08/16/16 07:53 08/16/16 11:26 Bedside Glucose 180 284 H 292 H Anion Gap 12 Basophils # 0.1 Basophils % 1.2 Blood Morphology Comment Blood Urea Nitrogen 9 Calcium Level 8.9 Carbon Dioxide Level 23 Chloride Level 105 Creatinine 0.60 Eosinophils # 0.2 Eosinophils % 3.6 Glucose Level 256 H Hematocrit 29.5 L Hemoglobin 9.8 L Lymphocytes # 1.8 Lymphocytes % 36.3 Magnesium Level 1.6 L Mean Corpuscular Hemoglobin 25.2 L Mean Corpuscular Hemoglobin Concent 33.1 Mean Corpuscular Volume 76.3 L Mean Platelet Volume 9.2 Monocytes # 0.4 Monocytes % 8.7 Neutrophils # 2.5 Neutrophils % 50.2 Nucleated Red Blood Cells # 0.0 Nucleated Red Blood Cells % 0.0 Phosphorus Level 3.8 Platelet Count 287 Potassium Level 4.2 Red Blood Count 3.87 L Red Cell Distribution Width 16.7 H Sodium Level 136 White Blood Count 5.1 Test 08/16/16 17:13 Bedside Glucose 239 H Medications Medications Current Medications Ondansetron HCl (Zofran Inj) 4 mg Q6H PRN IV NAUSEA AND/OR VOMITING; Start 05/20 at 19:00 Acetaminophen (Tylenol Tab) 650 mg Q6H PRN PO PAIN LEVEL 1-3 OR FEVER; Start at 19:00 Acetaminophen/ Hydrocodone Bitart ([place] (5/325)) 1 tab Q6H PRN PO MODERATE PAIN LEVEL 4-6 Last administered on 08/15/16t 23:14; Admin Dose 1 TAB; Start 05/20 at 19:00 Morphine Sulfate (morphine) 2 mg Q4H PRN IV SEVERE PAIN LEVEL 7-10; Start 08/14 at 19:00 Docusate Sodium (Colace) 100 mg Q12H PRN PO CONSTIPATION; Start 08/14/16 at 19: 00 Enoxaparin Sodium (Lovenox) 40 mg DAILY SC Last administered on 08/16/16 08:15 ; Admin Dose 40 MG; Start 08/15/16 at 09:00 Diagnostic Test (Pha) (Accucheck) 1 ea 02 XX Last administered on 08/15/16 02: 46; Admin Dose 1 EA; Start 08/15/16 at 02:00 Atorvastatin Calcium (Lipitor) 80 mg HS PO Last administered on 08/15/16 20:33 ; Admin Dose 80 MG; Start 08/14/16 at 21:00 Aspirin (Halfprin) 81 mg DAILY PO Last administered on 08/16/16 08:13; Admin Dose 81 MG; Start 08/15/16 at 09:00 Miscellaneous Information 1 ea NOTE XX ; Start 08/14/16 at 19:30 Glucose (Glutose) 15 gm Q15M PRN PO DECREASED GLUCOSE; Start 08/14/16 at 19:30 Glucose (Glutose) 22.5 gm Q15M PRN PO DECREASED GLUCOSE; Start 08/14/16 at 19: 30 Dextrose (D50w Syringe) 25 ml Q15M PRN IV DECREASED GLUCOSE; Start 08/14/16 at 19:30 Dextrose (D50w Syringe) 50 ml Q15M PRN IV DECREASED GLUCOSE; Start 08/14/16 at 19:30 Glucagon (Glucagen) 1 mg Q15M PRN IM DECREASED GLUCOSE; Start 08/14/16 at 19:30 Glucose 15 gm 15 gm Q15M PRN BUCCAL DECREASED GLUCOSE; Start 08/14/16 at 19:30 Sodium Chloride (NS) 1,000 ml @ 75 mls/hr [id number] IV Last administered on 08/16 03:45; Admin Dose 75 MLS/HR; Start 08/14/16 at 19:00 Famotidine 20 mg 20 mg BID PO Last administered on 08/16/16 08:13; Admin Dose 20 MG; Start 08/15/16 at 21:00 Levofloxacin/ Dextrose (Levaquin 500mg/ D5W 100 ml (Pmx)) 100 ml @ 100 mls/hr Q24H IVPB Last administered on 08/16/16 11:28; Admin Dose 100 MLS/HR; Start at 11:00 Linagliptin (Tradjenta) 5 mg DAILY PO Last administered on 08/16/16 08:13; Admin Dose 5 MG; Start 08/15/16 at 12:30 Cholecalciferol 1000 unit 1,000 unit DAILY PO Last administered on 08/16/16 08 :13; Admin Dose 1,000 UNIT; Start 08/16/16 at 09:00 Vancomycin HCl (Vancocin) 250 ml @ 125 mls/hr Q12H IVPB Last administered on 16:09; Admin Dose 125 MLS/HR; Start 08/16/16 at 04:00 Povidone Iodine (Povidone-Iodine) 1 applic BID TOP Last administered on 15:29; Admin Dose 1 APPLIC; Start 08/15/16 at 18:30 Miscellaneous Information (*Rx Drug Level Order Reminder*) VANCOMYCIN TROUGH AT 0300 ONCE ONCE XX ; Start 08/17/16 at 03:00; Stop 08/17/16 at 03:01 Insulin Glargine (Lantus) 28 unit DAILY@20 SC ; Start 08/16/16 at 20:00 SHOBHA MATT MD Aug 16, 2016 18:13
[2016-08-16] MEDS ORDERED: INSULIN GLARGINE [LANtus] 3 ML PEN SC SCH (20:00)
[2016-08-16 20:35] VITALS: BP 118/68; PULSE 84; RESP 19
[2016-08-16] MEDS: ATORVASTATIN 80 MG TAB PO SCH (20:40)
[2016-08-16] MEDS: morphine 2 MG INJ IV PRN (22:54)
[2016-08-17] MEDS: SOD CHLORIDE 0.9% 1,000 ML IV SCH ×3 (00:20→21:05)
[2016-08-17] MEDS: HYDROCODONE/APAP (5/325) TAB PO PRN (01:53)
[2016-08-17] MEDS: ACCUCHECK XX SCH (02:00)
[2016-08-17] MEDS ORDERED: morphine 4 MG/ML VIAL IV PRN (03:30)
[2016-08-17] MEDS: VANCOMYCIN 1 GM in NS 250 ML IVPB SCH (04:54)
[2016-08-17 07:49] VITALS: BP 115/58; RESP 18
[2016-08-17] MEDS: ASPIRIN (EC) 81 MG TAB PO SCH (08:23)
[2016-08-17] MEDS: FAMOTIDINE 20 MG TAB PO SCH ×2 (08:23→20:53)
[2016-08-17] MEDS: CHOLECALCIFEROL 1,000 UNIT TAB PO SCH (08:23)
[2016-08-17] MEDS: metFORMIN 500 MG TAB PO SCH ×2 (08:23→17:18)
[2016-08-17] MEDS: LINAGLIPTIN 5 MG TABLET PO SCH (08:23)
[2016-08-17] MEDS: INSULIN ASPART [NOVOLOG] 3 ML PEN SC SCH ×7 (09:17→20:55)
[2016-08-17] MEDS: ENOXAPARIN 40 MG/0.4 ML SYG SC SCH (09:18)
--- NOTE | 2016-08-17 09:47 | PN ---
Date/Time of Note Date/Time of Note DATE: 08/17/16 TIME: 09:44 Assessment/Plan VTE Prophylaxis VTE Prophylaxis Intervention: LMWH Lines/Catheters IV Catheter Type (from Nrs): Peripheral IV Urinary Cath still in place: No Assessment/Plan Chief Complaint/Hosp Course Assessment and plan 1. Left foot cellulitis secondary to injury. MRI of the left foot showed no evidence of osteomyelitis. Podiatry following. Continue on antibiotics per ID recommendations. Analgesics as needed. 2. Type 2 diabetes. Mental Health Clinician following. blood glucose does appear more controlled at this time.. Continue insulin regimen per endocrinology. Await A1c result 3. Dyslipidemia. Continue on statin medication 4. Hypernatremia. Improved with IV hydration 5. Hypomagnesemia. Will replete and check level in a.m. Disposition and plan: Continue antibiotics. Blood glucose better controlled. . Follow-up with carpenter apprentice recommendations. Discharge when cleared by consultants Discussed plan of care with Dr. Scales Problems: Subjective 24 Hr Interval Summary Free Text/Dictation Resting at this time. No apparent distress. No reports of pain at this time Exam/Review of Systems Vital Signs Vitals Vital Signs Date Time Temp Pulse Resp B/P Pulse Ox O2 Delivery O2 Flow Rate FiO2 08/17/16 07:49 98.4 75 18 115/58 100 08/16/16 20:35 Room Air Intake and Output 08/16/16 08/16/16 08/17/16 15:00 23:00 07:00 Intake Total 2290 ml 625 ml Balance 2290 ml 625 ml Exam General: No acute signs or symptoms of distress Eyes: pupils equal round, Anicteric sclera Neck: Supple nontender, no JVD Cardiac: S1, S2 auscultated, regular rhythm and rate Pulmonary: No coarse rhonchi or breathing auscultated GI: Abdomen soft nontender nondistended, bowel sounds active Extremities: Noted with some swelling on left lower extremity. Skin: Clean dry and intact Neurologic: Alert to person place and time and situation Results Result Diagram: 08/16/16 0507 08/16/16 0507 Results 24 hrs Laboratory Tests Test 08/16/16 11:26 08/16/16 17:13 08/16/16 20:38 08/17/16 02:55 Bedside Glucose 292 H 239 H 106 Vancomycin Level Trough 7.6 L Test 08/17/16 07:44 Bedside Glucose 167 Medications Medications Current Medications Ondansetron HCl (Zofran Inj) 4 mg Q6H PRN IV NAUSEA AND/OR VOMITING; Start 05/20 at 19:00 Acetaminophen (Tylenol Tab) 650 mg Q6H PRN PO PAIN LEVEL 1-3 OR FEVER; Start at 19:00 Acetaminophen/ Hydrocodone Bitart ([place] (5/325)) 1 tab Q6H PRN PO MODERATE PAIN LEVEL 4-6 Last administered on 08/17/16 01:53; Admin Dose 1 TAB; Start 05/20 at 19:00 Morphine Sulfate (morphine) 2 mg Q4H PRN IV SEVERE PAIN LEVEL 7-10 Last administered on 08/16/16 22:54; Admin Dose 2 MG; Start 08/14/16 at 19:00 Docusate Sodium (Colace) 100 mg Q12H PRN PO CONSTIPATION; Start 08/14/16 at 19: 00 Enoxaparin Sodium (Lovenox) 40 mg DAILY SC Last administered on 08/17/16 09:18 ; Admin Dose 40 MG; Start 08/15/16 at 09:00 Diagnostic Test (Pha) (Accucheck) 1 ea 02 XX Last administered on 08/15/16 02: 46; Admin Dose 1 EA; Start 08/15/16 at 02:00 Atorvastatin Calcium (Lipitor) 80 mg HS PO Last administered on 08/16/16 20:40 ; Admin Dose 80 MG; Start 08/14/16 at 21:00 Aspirin (Halfprin) 81 mg DAILY PO Last administered on 08/17/16 08:23; Admin Dose 81 MG; Start 08/15/16 at 09:00 Miscellaneous Information 1 ea NOTE XX ; Start 08/14/16 at 19:30 Glucose (Glutose) 15 gm Q15M PRN PO DECREASED GLUCOSE; Start 08/14/16 at 19:30 Glucose (Glutose) 22.5 gm Q15M PRN PO DECREASED GLUCOSE; Start 08/14/16 at 19: 30 Dextrose (D50w Syringe) 25 ml Q15M PRN IV DECREASED GLUCOSE; Start 08/14/16 at 19:30 Dextrose (D50w Syringe) 50 ml Q15M PRN IV DECREASED GLUCOSE; Start 08/14/16 at 19:30 Glucagon (Glucagen) 1 mg Q15M PRN IM DECREASED GLUCOSE; Start 08/14/16 at 19:30 Glucose 15 gm 15 gm Q15M PRN BUCCAL DECREASED GLUCOSE; Start 08/14/16 at 19:30 Sodium Chloride (NS) 1,000 ml @ 75 mls/hr [id number] IV Last administered on 08/16 23:00; Admin Dose 75 MLS/HR; Start 08/14/16 at 19:00 Famotidine 20 mg 20 mg BID PO Last administered on 08/17/16 08:23; Admin Dose 20 MG; Start 08/15/16 at 21:00 Levofloxacin/ Dextrose (Levaquin 500mg/ D5W 100 ml (Pmx)) 100 ml @ 100 mls/hr Q24H IVPB Last administered on 08/16/16 11:28; Admin Dose 100 MLS/HR; Start at 11:00 Linagliptin (Tradjenta) 5 mg DAILY PO Last administered on 08/17/16 08:23; Admin Dose 5 MG; Start 08/15/16 at 12:30 Cholecalciferol (Vitamin D) 1,000 unit DAILY PO Last administered on 08/17/16 08:23; Admin Dose 1,000 UNIT; Start 08/16/16 at 09:00 Povidone Iodine (Povidone-Iodine) 1 applic BID TOP Last administered on 20:42; Admin Dose 1 APPLIC; Start 08/15/16 at 18:30 Insulin Glargine 28 unit 28 unit DAILY@20 SC Last administered on 08/16/16 21: 04; Admin Dose 28 UNIT; Start 08/16/16 at 20:00 Vancomycin HCl/ Sodium Chloride (Vancocin/NS) 250 ml @ 83.333 mls/ hr Q12H IVPB ; Start 08/17/16 at 10:00 CHRISTIANO WAGGONER Aug 17, 2016 09:47
[2016-08-17] MEDS: POVIDONE IODINE 10% 28.4 GM OINT TOP SCH ×2 (09:56→20:55)
[2016-08-17] MEDS ORDERED: VANCOMYCIN 1.5 GM in SOD CHLORIDE 0.9% 250 ML IVPB SCH (10:00)
[2016-08-17] MEDS: morphine 2 MG INJ IV PRN ×2 (12:14→19:48)
--- NOTE | 2016-08-17 12:16 | CONS ---
Date/Time of Note Date/Time of Note DATE: 08/17/16 TIME: 12:14 Assessment/Plan Assessment/Plan Chief Complaint/Hosp Course SUBJECTIVE: The patient is alert, feels better, looks comfortable, no fevers. Vital signs stable. ANTIMICROBIALS: 1. Vancomycin. 2. Levaquin. PHYSICAL EXAMINATION: GENERAL: Well-nourished, well-developed, middle-aged -[place] woman who is alert, in no distress. HEENT: Head atraumatic, normocephalic. Sclerae anicteric. Buccal mucosa pink. NECK: Supple, trachea midline. CHEST: Rise symmetrical. Breath sounds clear. HEART: S1, S2. ABDOMEN: Soft, bowel tones present. EXTREMITIES: Left foot, resolving erythema and edema. ASSESSMENT: 1. Left foot, resolving cellulitis with a puncture wound. 2. Diabetes. PLAN: The patient remains stable, L foot with decreased swelling and erythema, will change abx to oral Bactrim for 7 more days. DW staff Problems: Consultation Date/Type/Reason Admit Date/Time Aug 14, 2016 at 17:41 Initial Consult Date 08/16/16 Type of Consultation: ID Referring Provider: LATANYA MEDEIROS BEE RAISER Exam/Review of Systems Vital Signs Vitals Vital Signs Date Time Temp Pulse Resp B/P Pulse Ox O2 Delivery O2 Flow Rate FiO2 08/17/16 07:49 98.4 75 18 115/58 100 08/16/16 20:35 Room Air Intake and Output 08/16/16 08/16/16 08/17/16 15:00 23:00 07:00 Intake Total 2290 ml 625 ml Balance 2290 ml 625 ml Results Result Diagram: 08/16/16 0507 08/16/16 0507 Results 24 hrs Laboratory Tests Test 08/16/16 17:13 08/16/16 20:38 08/17/16 02:55 08/17/16 07:44 Bedside Glucose 239 H 106 167 Vancomycin Level Trough 7.6 L Medications Medications Current Medications Ondansetron HCl (Zofran Inj) 4 mg Q6H PRN IV NAUSEA AND/OR VOMITING; Start 05/20 at 19:00 Acetaminophen (Tylenol Tab) 650 mg Q6H PRN PO PAIN LEVEL 1-3 OR FEVER; Start at 19:00 Acetaminophen/ Hydrocodone Bitart ([place] (5/325)) 1 tab Q6H PRN PO MODERATE PAIN LEVEL 4-6 Last administered on 08/17/16 01:53; Admin Dose 1 TAB; Start 05/20 at 19:00 Morphine Sulfate (morphine) 2 mg Q4H PRN IV SEVERE PAIN LEVEL 7-10 Last administered on 08/16/16 22:54; Admin Dose 2 MG; Start 08/14/16 at 19:00 Docusate Sodium (Colace) 100 mg Q12H PRN PO CONSTIPATION; Start 08/14/16 at 19: 00 Enoxaparin Sodium (Lovenox) 40 mg DAILY SC Last administered on 08/17/16 09:18 ; Admin Dose 40 MG; Start 08/15/16 at 09:00 Diagnostic Test (Pha) (Accucheck) 1 ea 02 XX Last administered on 08/15/16 02: 46; Admin Dose 1 EA; Start 08/15/16 at 02:00 Atorvastatin Calcium (Lipitor) 80 mg HS PO Last administered on 08/16/16 20:40 ; Admin Dose 80 MG; Start 08/14/16 at 21:00 Aspirin (Halfprin) 81 mg DAILY PO Last administered on 08/17/16 08:23; Admin Dose 81 MG; Start 08/15/16 at 09:00 Miscellaneous Information 1 ea NOTE XX ; Start 08/14/16 at 19:30 Glucose (Glutose) 15 gm Q15M PRN PO DECREASED GLUCOSE; Start 08/14/16 at 19:30 Glucose (Glutose) 22.5 gm Q15M PRN PO DECREASED GLUCOSE; Start 08/14/16 at 19: 30 Dextrose (D50w Syringe) 25 ml Q15M PRN IV DECREASED GLUCOSE; Start 08/14/16 at 19:30 Dextrose (D50w Syringe) 50 ml Q15M PRN IV DECREASED GLUCOSE; Start 08/14/16 at 19:30 Glucagon (Glucagen) 1 mg Q15M PRN IM DECREASED GLUCOSE; Start 08/14/16 at 19:30 Glucose 15 gm 15 gm Q15M PRN BUCCAL DECREASED GLUCOSE; Start 08/14/16 at 19:30 Sodium Chloride (NS) 1,000 ml @ 75 mls/hr [id number] IV Last administered on 08/16 23:00; Admin Dose 75 MLS/HR; Start 08/14/16 at 19:00 Famotidine (Pepcid) 20 mg BID PO Last administered on 08/17/16 08:23; Admin Dose 20 MG; Start 08/15/16 at 21:00 Linagliptin (Tradjenta) 5 mg DAILY PO Last administered on 08/17/16 08:23; Admin Dose 5 MG; Start 08/15/16 at 12:30 Cholecalciferol (Vitamin D) 1,000 unit DAILY PO Last administered on 08/17/16 08:23; Admin Dose 1,000 UNIT; Start 08/16/16 at 09:00 Povidone Iodine (Povidone-Iodine) 1 applic BID TOP Last administered on 09:56; Admin Dose 1 APPLIC; Start 08/15/16 at 18:30 Insulin Glargine 28 unit 28 unit DAILY@20 SC Last administered on 08/16/16 21: 04; Admin Dose 28 UNIT; Start 08/16/16 at 20:00 Vancomycin HCl/ Sodium Chloride (Vancocin/NS) 250 ml @ 83.333 mls/ hr Q12H IVPB Last administered on 08/17/16 09:57; Admin Dose 83.333 MLS/HR; Start at 10:00 Miscellaneous Information (*Rx Drug Level Order Reminder*) VANCO TROUGH @ 2, 100 ON... ONCE ONCE XX ; Start 08/18/16 at 21:00; Stop 08/18/16 at 21:01 Levofloxacin (Levaquin) 500 mg DAILY@06 PO ; Start 08/17/16 at 13:00 ARSALAN NEGRO NP Aug 17, 2016 12:16
[2016-08-17] MEDS ORDERED: LEVOFLOXACIN 500 MG TAB PO SCH (13:00)
--- NOTE | 2016-08-17 18:27 | CONS ---
Date/Time of Note Date/Time of Note DATE: 08/17/16 TIME: 18:25 Assessment/Plan Assessment/Plan Problems: (1) Type 2 diabetes mellitus with hyperglycemia Status: Chronic Comment: Marked improvement in glycemic control. Glucose levels now in goal range. Ok for d/c home on Lantus 30 qhs, Novolog 15 qac. Qualifiers: Diabetes mellitus ocean transportation intermediary insulin use: with ocean transportation intermediary use Qualified Code : E11.65 - Type 2 diabetes mellitus with hyperglycemia, with long-term current use of insulin Consultation Date/Type/Reason Admit Date/Time Aug 14, 2016 at 17:41 Initial Consult Date 08/16/16 Type of Consultation: Endocrinology Reason for Consultation [id number] Referring Provider: LATANYA MEDEIROS BANANA LOADER 24 HR Interval Summary Constitutional: improved, no complaints Detailed Summary Respiratory: no complaints Cardiovascular: no complaints Gastrointestinal: no complaints Genitourinary: no complaints Musculoskeletal: no complaints Neurologic: no complaints Exam/Review of Systems Vital Signs Vitals VS - Last 72 Hours, by Label Date Time Temp Pulse Resp B/P Pulse Ox O2 Delivery O2 Flow Rate FiO2 08/17/16 07:49 98.4 75 18 115/58 100 08/16/16 20:35 98.4 84 19 118/68 98 Room Air 08/16/16 07:40 98.3 79 18 115/63 99 08/15/16 20:33 98.4 84 18 113/67 99 08/15/16 08:18 98.0 79 18 100/57 99 08/15/16 07:22 98.0 76 18 134/80 96 08/14/16 19:46 98.1 86 20 107/62 100 Vital Signs Date Time Temp Pulse Resp B/P Pulse Ox O2 Delivery O2 Flow Rate FiO2 08/17/16 07:49 98.4 75 18 115/58 100 08/16/16 20:35 Room Air Intake and Output 08/16/16 08/16/16 08/17/16 15:00 23:00 07:00 Intake Total 2290 ml 625 ml Balance 2290 ml 625 ml Exam Constitutional: alert, obese, oriented Psych: nl mood/affect, no complaints Respiratory: clear to auscultation, normal air movement Cardiovascular: nl pulses, regular rate and rhythm, No edema, No murmurs/extra sounds, No rub Gastrointestinal: bowel sounds, nl liver, spleen, non-tender, soft, No mass, No rebound or guarding Musculoskeletal: nl extremities to inspection Extremities: normal pulses, No clubbing, No cyanosis, No edema Neurological: EXHAUST AND MUFFLER FITTER II-XII intact, nl mental status, nl speech, nl strength Additional Comments Bedside Glucose - 72 Hours Test 08/14/16 20:42 08/15/16 02:12 08/15/16 07:56 08/15/16 11:47 Bedside Glucose 284mg/dL (70-220) H 265mg/dL (70-220) H 232mg/dL (70-220) H 391mg/dL (70-220) H Test 08/15/16 13:27 08/15/16 15:20 08/15/16 17:17 08/15/16 20:32 Bedside Glucose 131mg/dL (70-220) 108mg/dL (70-220) 254mg/dL (70-220) H 180mg/dL (70-220) Test 08/16/16 07:53 08/16/16 11:26 08/16/16 17:13 08/16/16 20:38 Bedside Glucose 284mg/dL (70-220) H 292mg/dL (70-220) H 239mg/dL (70-220) H 106mg/dL (70-220) Test 08/17/16 07:44 08/17/16 11:32 08/17/16 17:14 Bedside Glucose 167mg/dL (70-220) 188mg/dL (70-220) 108mg/dL (70-220) Results Result Diagram: 08/16/16 0507 08/16/16 0507 Results 24 hrs Laboratory Tests Test 08/16/16 20:38 08/17/16 02:55 08/17/16 07:44 08/17/16 11:32 Bedside Glucose 106 167 188 Vancomycin Level Trough 7.6 L Test 08/17/16 17:14 Bedside Glucose 108 Medications Medications Current Medications Ondansetron HCl (Zofran Inj) 4 mg Q6H PRN IV NAUSEA AND/OR VOMITING; Start 05/20 at 19:00 Acetaminophen (Tylenol Tab) 650 mg Q6H PRN PO PAIN LEVEL 1-3 OR FEVER; Start at 19:00 Acetaminophen/ Hydrocodone Bitart ([place] (5/325)) 1 tab Q6H PRN PO MODERATE PAIN LEVEL 4-6 Last administered on 08/17/16 01:53; Admin Dose 1 TAB; Start 05/20 at 19:00 Morphine Sulfate (morphine) 2 mg Q4H PRN IV SEVERE PAIN LEVEL 7-10 Last administered on 08/17/16 12:14; Admin Dose 2 MG; Start 08/14/16 at 19:00 Docusate Sodium (Colace) 100 mg Q12H PRN PO CONSTIPATION; Start 08/14/16 at 19: 00 Enoxaparin Sodium (Lovenox) 40 mg DAILY SC Last administered on 08/17/16 09:18 ; Admin Dose 40 MG; Start 08/15/16 at 09:00 Diagnostic Test (Pha) (Accucheck) 1 ea 02 XX Last administered on 08/15/16 02: 46; Admin Dose 1 EA; Start 08/15/16 at 02:00 Atorvastatin Calcium (Lipitor) 80 mg HS PO Last administered on 08/16/16 20:40 ; Admin Dose 80 MG; Start 08/14/16 at 21:00 Aspirin (Halfprin) 81 mg DAILY PO Last administered on 08/17/16 08:23; Admin Dose 81 MG; Start 08/15/16 at 09:00 Miscellaneous Information 1 ea NOTE XX ; Start 08/14/16 at 19:30 Glucose (Glutose) 15 gm Q15M PRN PO DECREASED GLUCOSE; Start 08/14/16 at 19:30 Glucose (Glutose) 22.5 gm Q15M PRN PO DECREASED GLUCOSE; Start 08/14/16 at 19: 30 Dextrose (D50w Syringe) 25 ml Q15M PRN IV DECREASED GLUCOSE; Start 08/14/16 at 19:30 Dextrose (D50w Syringe) 50 ml Q15M PRN IV DECREASED GLUCOSE; Start 08/14/16 at 19:30 Glucagon (Glucagen) 1 mg Q15M PRN IM DECREASED GLUCOSE; Start 08/14/16 at 19:30 Glucose 15 gm 15 gm Q15M PRN BUCCAL DECREASED GLUCOSE; Start 08/14/16 at 19:30 Sodium Chloride (NS) 1,000 ml @ 75 mls/hr [id number] IV Last administered on 08/16 23:00; Admin Dose 75 MLS/HR; Start 08/14/16 at 19:00 Famotidine (Pepcid) 20 mg BID PO Last administered on 08/17/16 08:23; Admin Dose 20 MG; Start 08/15/16 at 21:00 Linagliptin (Tradjenta) 5 mg DAILY PO Last administered on 08/17/16 08:23; Admin Dose 5 MG; Start 08/15/16 at 12:30 Cholecalciferol (Vitamin D) 1,000 unit DAILY PO Last administered on 08/17/16 08:23; Admin Dose 1,000 UNIT; Start 08/16/16 at 09:00 Povidone Iodine (Povidone-Iodine) 1 applic BID TOP Last administered on 09:56; Admin Dose 1 APPLIC; Start 08/15/16 at 18:30 Trimethoprim/ Sulfamethoxazole (Bactrim (Ds)) 1 tab BID PO ; Start 08/17/16 at 21:00 Insulin Glargine (Lantus) 30 unit DAILY@20 SC ; Start 08/17/16 at 20:00 SHOBHA MATT MD Aug 17, 2016 18:27
--- NOTE | 2016-08-17 18:33 | CONS ---
DATE OF ADMISSION: 08/14/2016 DATE OF CONSULTATION: 08/17/2016 SUBJECTIVE FINDINGS: The patient being followed for left foot cellulitis. The patient with decreas ed pain, edema, minimal; continued medications include vancomycin and Levaquin. PHYSICAL EXAMINATION: VITAL SIGNS: Temperature 98.4, pulse 75, respiratory 18, blood pressure 115/58, pulse oximetry 100 on room air. GENERAL: The patient alert and oriented, no acute distress. Regular respiration. Has mild edema l eft foot first metatarsophalangeal joint. Mild tenderness with palpation. No pain with passive ran ge of motion of the first metatarsophalangeal joint. ASSESSMENT: 1. Left foot cellulitis. 2. History of puncture wound without evidence of foreign body or osteomyelitis. 3. Type 2 diabetes, poorly controlled. PLAN: Patient is stable. I appreciate ID recommendations for Bactrim for 7 more days. No operativ e intervention is recommended at this time. Recommend tight glycemic control. We will need outpati ent followup to minimize diabetes-related complications. Dictated By: JUDITH NIEVES/MARCY Conf#: [id number] DID#: [id number]
[2016-08-17 19:45] VITALS: BP 128/76; RESP 18
[2016-08-17] MEDS ORDERED: INSULIN GLARGINE [LANtus] 3 ML PEN SC SCH (20:00)
[2016-08-17] MEDS: ATORVASTATIN 80 MG TAB PO SCH (20:53)
[2016-08-17] MEDS: TRIMETHOPRIM/SULFAMETHOX (DS) TAB PO SCH (20:53)
[2016-08-18] MEDS: ACCUCHECK XX SCH (02:00)
[2016-08-18] MEDS: SOD CHLORIDE 0.9% 1,000 ML IV SCH ×2 (03:00→09:20)
[2016-08-18] MEDS: morphine 2 MG INJ IV PRN (05:16)
[2016-08-18 07:35] VITALS: BP 114/72; RESP 18
[2016-08-18] MEDS: FAMOTIDINE 20 MG TAB PO SCH (08:23)
[2016-08-18] MEDS: ASPIRIN (EC) 81 MG TAB PO SCH (08:23)
[2016-08-18] MEDS: CHOLECALCIFEROL 1,000 UNIT TAB PO SCH (08:23)
[2016-08-18] MEDS: TRIMETHOPRIM/SULFAMETHOX (DS) TAB PO SCH (08:23)
[2016-08-18] MEDS: metFORMIN 500 MG TAB PO SCH (08:24)
[2016-08-18] MEDS: LINAGLIPTIN 5 MG TABLET PO SCH (08:24)
[2016-08-18] MEDS ORDERED: LINA5TAB PO (09:06)
[2016-08-18] MEDS: ENOXAPARIN 40 MG/0.4 ML SYG SC SCH (09:08)
[2016-08-18] MEDS: INSULIN ASPART [NOVOLOG] 3 ML PEN SC SCH ×2 (09:09)
--- NOTE | 2016-08-18 09:10 | PDOCDIS ---
Discharge Instructions DIAGNOSIS Discharge Diagnosis: 1. left lower extremity cellulitis 2. uncontrolled diabetes 3. dyslipidemia CONDITION Patient Condition: Stable HOME CARE INSTRUCTIONS: Diet Instructions: Low Fat /CholesterolSpecial Diet: carb controlled FOLLOW UP/APPOINTMENTS Appointments 1. Follow up with Dr. Harrison Soto within one week 2. Follow up with your primary care providers in 1-2 weeks CHRISTIANO WAGGONER Aug 18, 2016 09:10
[2016-08-18] MEDS: POVIDONE IODINE 10% 28.4 GM OINT TOP SCH (09:21)
[2016-08-18] MEDS ORDERED: LANT3I SC (11:07)
[2016-08-18] MEDS ORDERED: NOVO3I SC (11:07)
--- NOTE | 2016-08-18 12:39 | CONS ---
Date/Time of Note Date/Time of Note DATE: 08/18/16 TIME: 12:38 Assessment/Plan Assessment/Plan Chief Complaint/Hosp Course SUBJECTIVE: The patient is alert, feels better, looks comfortable, no fevers. Vital signs stable. ANTIMICROBIALS: Bactrim PHYSICAL EXAMINATION: GENERAL: Well-nourished, well-developed, middle-aged -[place] woman who is alert, in no distress. HEENT: Head atraumatic, normocephalic. Sclerae anicteric. Buccal mucosa pink. NECK: Supple, trachea midline. CHEST: Rise symmetrical. Breath sounds clear. HEART: S1, S2. ABDOMEN: Soft, bowel tones present. EXTREMITIES: Left foot, resolving erythema and edema. ASSESSMENT: 1. Left foot, resolving cellulitis with a puncture wound. 2. Diabetes. PLAN: The patient remains stable, continue oral Bactrim for 7 more days, f/u with podiatry service outpatient. DW staff Problems: Consultation Date/Type/Reason Admit Date/Time Aug 14, 2016 at 17:41 Initial Consult Date 08/16/16 Type of Consultation: id Referring Provider: LATANYA MEDEIROS CLOTH CLASSER Exam/Review of Systems Vital Signs Vitals Vital Signs Date Time Temp Pulse Resp B/P Pulse Ox O2 Delivery O2 Flow Rate FiO2 08/18/16 07:35 98.1 77 18 114/72 98 08/16/16 20:35 Room Air Intake and Output 08/17/16 08/17/16 08/18/16 15:00 23:00 07:00 Intake Total 720 ml 1425 ml 1080 ml Output Total 1 ml Balance 720 ml 1424 ml 1080 ml Results Result Diagram: 08/16/16 0507 08/16/16 0507 Results 24 hrs Laboratory Tests Test 08/17/16 17:14 08/17/16 20:52 08/18/16 07:34 Bedside Glucose 108 119 172 Medications Medications Current Medications Ondansetron HCl (Zofran Inj) 4 mg Q6H PRN IV NAUSEA AND/OR VOMITING; Start 05/20 at 19:00 Acetaminophen (Tylenol Tab) 650 mg Q6H PRN PO PAIN LEVEL 1-3 OR FEVER; Start at 19:00 Acetaminophen/ Hydrocodone Bitart ([place] (5/325)) 1 tab Q6H PRN PO MODERATE PAIN LEVEL 4-6 Last administered on 08/17/16 01:53; Admin Dose 1 TAB; Start 05/20 at 19:00 Morphine Sulfate (morphine) 2 mg Q4H PRN IV SEVERE PAIN LEVEL 7-10 Last administered on 08/18/16 05:16; Admin Dose 2 MG; Start 08/14/16 at 19:00 Docusate Sodium (Colace) 100 mg Q12H PRN PO CONSTIPATION; Start 08/14/16 at 19: 00 Enoxaparin Sodium (Lovenox) 40 mg DAILY SC Last administered on 08/18/16 09:08 ; Admin Dose 40 MG; Start 08/15/16 at 09:00 Diagnostic Test (Pha) (Accucheck) 1 ea 02 XX Last administered on 08/15/16 02: 46; Admin Dose 1 EA; Start 08/15/16 at 02:00 Atorvastatin Calcium (Lipitor) 80 mg HS PO Last administered on 08/17/16 20:53 ; Admin Dose 80 MG; Start 08/14/16 at 21:00 Aspirin (Halfprin) 81 mg DAILY PO Last administered on 08/18/16 08:23; Admin Dose 81 MG; Start 08/15/16 at 09:00 Miscellaneous Information 1 ea NOTE XX ; Start 08/14/16 at 19:30 Glucose (Glutose) 15 gm Q15M PRN PO DECREASED GLUCOSE; Start 08/14/16 at 19:30 Glucose (Glutose) 22.5 gm Q15M PRN PO DECREASED GLUCOSE; Start 08/14/16 at 19: 30 Dextrose (D50w Syringe) 25 ml Q15M PRN IV DECREASED GLUCOSE; Start 08/14/16 at 19:30 Dextrose (D50w Syringe) 50 ml Q15M PRN IV DECREASED GLUCOSE; Start 08/14/16 at 19:30 Glucagon (Glucagen) 1 mg Q15M PRN IM DECREASED GLUCOSE; Start 08/14/16 at 19:30 Glucose 15 gm 15 gm Q15M PRN BUCCAL DECREASED GLUCOSE; Start 08/14/16 at 19:30 Sodium Chloride (NS) 1,000 ml @ 75 mls/hr [id number] IV Last administered on 08/18 09:20; Admin Dose 75 MLS/HR; Start 08/14/16 at 19:00 Famotidine (Pepcid) 20 mg BID PO Last administered on 08/18/16 08:23; Admin Dose 20 MG; Start 08/15/16 at 21:00 Linagliptin (Tradjenta) 5 mg DAILY PO Last administered on 08/18/16 08:24; Admin Dose 5 MG; Start 08/15/16 at 12:30 Cholecalciferol (Vitamin D) 1,000 unit DAILY PO Last administered on 08/18/16 08:23; Admin Dose 1,000 UNIT; Start 08/16/16 at 09:00 Povidone Iodine (Povidone-Iodine) 1 applic BID TOP Last administered on 09:21; Admin Dose 1 APPLIC; Start 08/15/16 at 18:30 Trimethoprim/ Sulfamethoxazole (Bactrim (Ds)) 1 tab BID PO Last administered on 08/18/16 08:23; Admin Dose 1 TAB; Start 08/17/16 at 21:00 Insulin Glargine (Lantus) 30 unit DAILY@20 SC Last administered on 08/17/16 20 :57; Admin Dose 30 UNIT; Start 08/17/16 at 20:00 ARSALAN NEGRO NP Aug 18, 2016 12:39
--- NOTE | 2016-08-18 15:42 | DS ---
Date/Time of Note Date/Time of Note DATE: 08/18/16 TIME: 15:38 Discharge Summary Admission/Discharge Info Admit Date/Time Aug 14, 2016 at 17:41 Discharge Date/Time Aug 18, 2016 at 12:50 Final Diagnosis 1. Left foot cellulitis secondary to injury. 2. Type 2 diabetes. 3. Dyslipidemia. 4. Hypernatremia. 5. Hypomagnesemia. Patient Condition: Stable Consults 1. Dr. Jose Miguel Gong 2. Dr. Harrison Soto 3. Dr. Da Adames [facility] Course This is a 46-year-old female with past medical history of type 2 diabetes, dyslipidemia, reported he stepped on a toothpick on 08/09/2016 with resultant injury to left foot plantar surface proximal to the left big toe. She came to ER initially and was discharged on oral Bactrim with minimal improvement. She did report that it got worse when she was at home. She subsequently went to [facility] due to worsening of problems but was transferred to [facility] due to insurance issues. She was seen by infectious disease physician as well as by supervisor mold construction. Per podiatry no surgical intervention needed. Further MRI stating of the left lower extremity showed no evidence of osteomyelitis. She was optimized on antibiotics per ID recommendations. She was noted after lab work done, that she had uncontrolled diabetes. She was seen by manufacturing project engineer who did adjust her regimen. She was also seen by community nutrition educator for diabetes education. She was otherwise optimized medically. She was continued on antibiotics for her left foot wound. She did have insulin for her diabetes and she was on statin medication for dyslipidemia. She also had her electrolyte imbalances repleted. During her course of stay she did improve. The plan of care was discussed with the patient and patient did verbalize her understanding. On the day of discharge patient was in stable condition Discussed plan of care with Dr. Scales Discharge process time is 40 minutes Disposition: Home Home Meds Active Scripts Insulin Glargine* (Lantus*) 100 Unit/Ml Soln, 30 UNIT SC DAILY@20 for 30 Days Prov:CHRISTIANO WAGGONER 08/18/16 Insulin Aspart* (Novolog Insulin Pen*) 100 Unit/Ml Soln, 15 UNIT SC WITH MEALS for 30 Days Prov:CHRISTIANO WAGGONER 08/18/16 Linagliptin (TRADJENTA) 5 Mg Tablet, 5 MG PO DAILY for 30 Days, TAB Prov:CHRISTIANO WAGGONER 08/18/16 Sulfamethoxazole-Trimethoprim* (Bactrim* DS) 800-160 Mg Tab, 1 TAB PO BID for 7 Days, TAB Prov:CHRISTIANO WAGGONER 08/16/16 Metformin Hcl (Glucophage) 500 Mg Tablet, 1000 MG PO BID WITH MEALS for 30 Days , TAB Prov:CHRISTIANO WAGGONER 08/16/16 Hydrocodone Bit-Acetaminophen (Hydrocodone Bit-APAP) 5-325MG Tablet, 1 TAB PO Q6H Y for MODERATE PAIN LEVEL 4-6, #30 TAB Prov:CHRISTIANO WAGGONER 08/16/16 Cholecalciferol* (Vitamin D3*) 1,000 Unit Tablet, 1000 UNIT PO DAILY for 30 Days , TAB Prov:CHRISTIANO WAGGONER 08/16/16 Atorvastatin* (Atorvastatin*) 80 Mg Tablet, 80 MG PO HS for 30 Days, TAB Prov:CHRISTIANO WAGGONER 08/16/16 Follow-up Plan CONDITION Patient Condition: Stable HOME CARE INSTRUCTIONS: Diet Instructions: Low Fat /CholesterolSpecial Diet: carb controlled FOLLOW UP/APPOINTMENTS Appointments 1. Follow up with Dr. Harrison Soto within one week 2. Follow up with your primary care providers in 1-2 weeks Pending Labs Laboratory Tests Test 08/17/16 17:14 08/17/16 20:52 08/18/16 07:34 Bedside Glucose 108mg/dL (70-220) 119mg/dL (70-220) 172mg/dL (70-220) CHRISTIANO WAGGONER Aug 18, 2016 15:42
== END 2016-08-18 12:50 | disposition home or self-care (01) | DRG 603 ==
LOC: MS2 17:41
PROVIDERS: ADMIT Student in an Organized Health Care Education/Training Program; ATTEND Student in an Organized Health Care Education/Training Program
DX: L03.116 Cellulitis of left lower limb (principal); E11.65 Type 2 diabetes mellitus with hyperglycemia; E87.1 Hypo-osmolality and hyponatremia; S91.332A Puncture wound without foreign body, left foot, initial encounter; E83.42 Hypomagnesemia; E78.5 Hyperlipidemia, unspecified; D50.9 Iron deficiency anemia, unspecified; Z79.4 Long term (current) use of insulin; Z79.84 Long term (current) use of oral hypoglycemic drugs; W22.8XXA Striking against or struck by other objects, initial encounter
CPT/HCPCS: 73718; 80048; 80061; 80202; 82652; 82728; 82962; 83036; 83540; 83735; 84100; 84703; 85025; J0690; J1650; J1815; J1956; J2270; J3370; J7030; J7050